=== PATIENT | male | born 1940 | race Caucasian/White ===

== ENCOUNTER 2018-06-25 12:34 | Emergency (ER) | payer MEDICARE, OTHER ==
[~2018-06-25] VITALS: Ht 167.6 cm; Wt 100.0 kg
[2018-06-25] MEDS ORDERED: HYDROcodone/acetaminophen 10/325mg tab PO ONE (13:00)
[2018-06-25] MEDS ORDERED: TRAM50TA2 PO (13:11)
[2018-06-25 14:13] VITALS: BP 145/81
== END 2018-06-25 14:13 | disposition home or self-care (01) ==
LOC: ER 12:34
DX: M54.6 Pain in thoracic spine (principal); M54.5 Low back pain; Z88.2 Allergy status to sulfonamides; Z79.899 Other long term (current) drug therapy
CPT/HCPCS: 72070; 72100; 99283

== ENCOUNTER 2023-05-17 17:46 | Inpatient (IN) | payer BC, MEDICARE ==
[~2023-05-17] VITALS: Ht 170.2 cm; Wt 98.8 kg
[2023-05-17 18:19] LABS: BASOPHILS # (AUTO) 0.1 X10'3 (0-0.2); BASOPHILS % (AUTO) 0.5 % (0-1); EOSINOPHILS # (AUTO) 0.1 X10'3 (0-0.9); HEMATOCRIT 34.8 % (42.0-52.0); HEMOGLOBIN 11.6 g/dl (14.0-17.9); LYMPHOCYTES # (AUTO) 0.6 X10'3 (1.1-4.8); LYMPHOCYTES % (AUTO) 5.4 % (21-51); MEAN CORPUSCULAR HEMOGLOBIN 29.4 PG (27.0-31.0); MEAN CORPUSCULAR HGB CONC 33.2 g/dL (33.0-36.5); MEAN CORPUSCULAR VOLUME 88.6 FL (78-98); MEAN PLATELET VOLUME 7.4 FL (7.4-10.4); MONOCYTES # (AUTO) 0.7 X10'3 (0-0.9); MONOCYTES % (AUTO) 6.1 % (2-12); NEUTROPHILS # (AUTO) 9.7 X10'3 (1.8-7.7); PLATELET COUNT 374 X10'3 (140-440); RED BLOOD COUNT 3.93 X10'6 (4.70-6.10); WHITE BLOOD COUNT 11.2 X10'3 (4.5-11.0)
[2023-05-17 18:24] LABS: ALBUMIN 2.6 G/DL (3.4-5.0); ANION GAP 12 (8-16); BLOOD UREA NITROGEN 42 MG/DL (7-18); BUN/CREATININE RATIO 23.7 (10.0-20.0); CALCIUM 8.2 MG/DL (8.5-10.1); CHLORIDE 105 MMOL/L (99-107); CREATININE 1.77 MG/DL (0.60-1.10); GLUCOSE 151 MG/DL (70-104); POTASSIUM 5.3 MMOL/L (3.5-5.1); SODIUM 135 MMOL/L (135-145); eCRCL 20 ML/MIN; eGFR 37 ML/MIN
[2023-05-17 18:25] LABS: PROTHROMBIN TIME 10.8 SECONDS (9.0-12.0)
[2023-05-17 18:29] LABS: ALANINE AMINOTRANSFERASE 30 U/L (12-78); ALBUMIN 2.6 G/DL (3.4-5.0); ALBUMIN/GLOBULIN RATIO 0.6 (1.1-1.5); ALKALINE PHOSPHATASE 82 IU/L (46-116); ANION GAP 13 (8-16); ASPARTATE AMINO TRANSFERASE 21 U/L (10-37); BILIRUBIN,TOTAL 0.3 MG/DL (0.1-1.0); BLOOD UREA NITROGEN 43 MG/DL (7-18); BUN/CREATININE RATIO 24.4 (10.0-20.0); CALCIUM 8.2 MG/DL (8.5-10.1); CHLORIDE 105 MMOL/L (99-107); CREATININE 1.76 MG/DL (0.60-1.10); GLUCOSE 152 MG/DL (70-104); POTASSIUM 5.3 MMOL/L (3.5-5.1); SODIUM 136 MMOL/L (135-145); TOTAL CARBON DIOXIDE 18.3 MMOL/L (24-32); TOTAL PROTEIN 6.7 G/DL (6.4-8.2); eCRCL 20 ML/MIN; eGFR 37 ML/MIN
[2023-05-17 18:39] LABS: PRO BRAIN NATRIURETIC PEPTIDE 3873 PG/ML (0-450)
[2023-05-17 19:05] LABS: APTT 31 SECONDS (22-32)
[2023-05-17] MEDS: ondansetron 4mg rapidly disintigrating tab PO ONE (20:51)
[2023-05-17] MEDS: normal saline 1000ml 1,000 ML IV ONE (20:57)
[2023-05-17] MEDS ORDERED: temazepam 15mg capsule PO PRN (21:00)
[2023-05-17] MEDS ORDERED: magnesium 4gm in 100ml NS 100 ML IV PRN (21:30)
[2023-05-17] MEDS ORDERED: magnesium hydroxide 30ml (MOM) UD suspension PO PRN (21:30)
[2023-05-17] MEDS ORDERED: ondansetron/PF 4mg/2ml inj IV PRN (21:30)
[2023-05-17] MEDS ORDERED: mag hydrox/Alum hydrox/simeth 30ml oral suspension PO PRN (21:30)
[2023-05-17] MEDS: normal saline 1000ml 1,000 ML IV SCH (21:30)
[2023-05-17] MEDS ORDERED: potassium Cl 40MEQ/1/2NS 520ml 520 ML IV PRN (21:30)
[2023-05-17] MEDS ORDERED: magnesium Cl slow-release 64mg tablet PO PRN (21:30)
[2023-05-17] MEDS ORDERED: potassium Cl 20 mEq SR tablet PO PRN ×2 (21:30)
[2023-05-17] MEDS ORDERED: acetaminophen 325mg tablet PO PRN (21:30)
[2023-05-18 07:14] LABS: BASOPHILS # (AUTO) 0.1 X10'3 (0-0.2); BASOPHILS % (AUTO) 0.7 % (0-1); EOSINOPHILS # (AUTO) 0.1 X10'3 (0-0.9); EOSINOPHILS % (AUTO) 1.2 % (0-6); HEMATOCRIT 33.9 % (42.0-52.0); LYMPHOCYTES # (AUTO) 1.1 X10'3 (1.1-4.8); LYMPHOCYTES % (AUTO) 11.4 % (21-51); MEAN CORPUSCULAR HEMOGLOBIN 28.8 PG (27.0-31.0); MEAN CORPUSCULAR HGB CONC 32.6 g/dL (33.0-36.5); MEAN CORPUSCULAR VOLUME 88.4 FL (78-98); MEAN PLATELET VOLUME 7.5 FL (7.4-10.4); MONOCYTES # (AUTO) 1.3 X10'3 (0-0.9); MONOCYTES % (AUTO) 13.5 % (2-12); NEUTROPHILS # (AUTO) 7.2 X10'3 (1.8-7.7); NEUTROPHILS % (AUTO) 73.2 % (42-75); PLATELET COUNT 362 X10'3 (140-440); RED BLOOD COUNT 3.83 X10'6 (4.70-6.10); RED CELL DISTRIBUTION WIDTH 13.5 % (11.5-14.5); WHITE BLOOD COUNT 9.9 X10'3 (4.5-11.0)
[2023-05-18 07:29] LABS: ALBUMIN 2.3 G/DL (3.4-5.0); ANION GAP 9 (8-16); BLOOD UREA NITROGEN 37 MG/DL (7-18); BUN/CREATININE RATIO 22.8 (10.0-20.0); CALCIUM 7.8 MG/DL (8.5-10.1); CHLORIDE 110 MMOL/L (99-107); CREATININE 1.62 MG/DL (0.60-1.10); GLUCOSE 141 MG/DL (70-104); POTASSIUM 4.8 MMOL/L (3.5-5.1); SODIUM 140 MMOL/L (135-145); TOTAL CARBON DIOXIDE 21.1 MMOL/L (24-32); eCRCL 22 ML/MIN; eGFR 41 ML/MIN
[2023-05-18] MEDS ORDERED: docusate sod 100mg capsule PO SCH (08:00)
[2023-05-18] MEDS: pantoprazole 40mg Tablet.DR PO SCH (09:02)
[2023-05-18] MEDS: metoprolol succinate 25mg (24-HOUR) SR. Tablet PO SCH (09:03)
[2023-05-18] MEDS: heparin, porcine 5000 units/ml vial SQ SCH (09:03)
[2023-05-18 09:19] LABS: BILIRUBIN,URINE NEGATIVE (Neg); CLARITY,URINE CLEAR (Clear); COLOR,URINE STRAW (Yellow); GLUCOSE, URINE NEGATIVE (Neg); KETONES,URINE NEGATIVE (Neg); LEUKOCYTE ESTERASE ,URINE SMALL (Neg); NITRITES, URINE NEGATIVE (Neg); OCCULT BLOOD,URINE TRACE-INTACT (Neg); PROTEIN,URINE 100 mg/dl (Neg); UROBILINOGEN,URINE 0.2 E.U/dL (0.2-1.0)
[2023-05-18 09:24] LABS: UA COLLECTION TYPE NON-SPECIFIED
[2023-05-18 09:25] LABS: SQUAMOUS EPITHELIAL CELL,UR FEW /LPF (FEW); WBC CLUMPS,URINE FEW /HPF (NEGATIVE)
[2023-05-18 09:26] LABS: WBC,URINE 50-100 /HPF (0-4); YEAST MANY /HPF (NEGATIVE)
[2023-05-18 09:27] LABS: BACTERIA,URINE NONE SEEN /HPF (Neg)
[2023-05-18] MEDS: CefTRIAXone/D5W-Rocephin 1gm 50 ML IV SCH (09:30)
[2023-05-18 15:00] VITALS: BP 96/58; PULSE 63; RESP 19; TEMP 98.2; O2SAT 96
[2023-05-18] MEDS ORDERED: SIMV10TA98 PO (17:20)
[2023-05-18] MEDS ORDERED: FINA5TAB11 PO (17:20)
[2023-05-18] MEDS ORDERED: FLO0.4C PO (17:20)
[2023-05-18] MEDS ORDERED: HYDR25TA4 PO (17:20)
[2023-05-18] MEDS ORDERED: PROP20TA6 PO (17:20)
[2023-05-18] MEDS ORDERED: METF-1203 PO (17:20)
[2023-05-18] MEDS ORDERED: AMLO10TA13 PO (17:20)
[2023-05-18] MEDS ORDERED: LANTUS SQ (17:20)
[2023-05-18] MEDS ORDERED: CEPH-585 PO (17:20)
[2023-05-18] MEDS ORDERED: HYDR25TA90 PO (17:23)
[2023-05-18] MEDS ORDERED: PRIM50TA5 (17:23)
[2023-05-18] MEDS ORDERED: CEPH500T PO (17:24)
[2023-05-18 18:00] VITALS: BP 140/62; PULSE 67; RESP 18; TEMP 98.2; O2SAT 97
[2023-05-18] MEDS: hydrALAZINE 25 MG tablet PO SCH (20:34)
[2023-05-18] MEDS: tamsulosin 0.4mg capsule PO SCH (20:34)
[2023-05-18] MEDS ORDERED: glucagon, human recombinant 1mg kit SUBCUT PRN (21:55)
[2023-05-18] MEDS ORDERED: DEXTROSE 15 GM of carb/4 tabs (each vial/BOTTLE has 4 tablets) PO PRN ×2 (21:55)
[2023-05-18] MEDS: MESSAGE TO PHARMACY PO ONE (21:55)
[2023-05-18] MEDS ORDERED: dextrose 50%-water 50ml dispensing syringe IV PRN ×2 (21:55)
[2023-05-18 22:00] VITALS: BP 153/72; PULSE 62; RESP 20; TEMP 98.3; O2SAT 95
[2023-05-18] MEDS: insulin Lispro (HumaLOG) vial - multi-dose SQ SCH (22:56)
[2023-05-18] MEDS: insulin glargine (Lantus) pen - multi-dose SQ SCH (23:00)
[2023-05-19 02:00] VITALS: BP 157/77; PULSE 67; RESP 16; TEMP 97.5; O2SAT 95
[2023-05-19 06:00] VITALS: BP 146/62; PULSE 70; RESP 12; TEMP 98.2; O2SAT 95
[2023-05-19 06:47] LABS: HEMOGLOBIN A1C 7.6 % (4.5-6.2)
[2023-05-19 06:49] LABS: BASOPHILS # (AUTO) 0.1 X10'3 (0-0.2); BASOPHILS % (AUTO) 1.1 % (0-1); EOSINOPHILS # (AUTO) 0.1 X10'3 (0-0.9); EOSINOPHILS % (AUTO) 1.4 % (0-6); HEMATOCRIT 31.9 % (42.0-52.0); HEMOGLOBIN 10.8 g/dl (14.0-17.9); LYMPHOCYTES # (AUTO) 1.2 X10'3 (1.1-4.8); LYMPHOCYTES % (AUTO) 16.2 % (21-51); MEAN CORPUSCULAR HEMOGLOBIN 29.7 PG (27.0-31.0); MEAN CORPUSCULAR HGB CONC 33.8 g/dL (33.0-36.5); MEAN PLATELET VOLUME 7.7 FL (7.4-10.4); MONOCYTES # (AUTO) 0.9 X10'3 (0-0.9); MONOCYTES % (AUTO) 12.2 % (2-12); NEUTROPHILS # (AUTO) 4.9 X10'3 (1.8-7.7); NEUTROPHILS % (AUTO) 69.1 % (42-75); PLATELET COUNT 360 X10'3 (140-440); RED BLOOD COUNT 3.63 X10'6 (4.70-6.10); RED CELL DISTRIBUTION WIDTH 13.8 % (11.5-14.5); WHITE BLOOD COUNT 7.1 X10'3 (4.5-11.0)
[2023-05-19 07:05] LABS: ALBUMIN 2.2 G/DL (3.4-5.0); ANION GAP 11 (8-16); BLOOD UREA NITROGEN 29 MG/DL (7-18); CALCIUM 8.1 MG/DL (8.5-10.1); CHLORIDE 111 MMOL/L (99-107); CREATININE 1.38 MG/DL (0.60-1.10); GLUCOSE 152 MG/DL (70-104); POTASSIUM 4.5 MMOL/L (3.5-5.1); SODIUM 143 MMOL/L (135-145); TOTAL CARBON DIOXIDE 20.9 MMOL/L (24-32); eCRCL 26 ML/MIN; eGFR 49 ML/MIN
[2023-05-19] MEDS: amLODIPine 5mg tablet PO SCH (08:31)
[2023-05-19] MEDS: finasteride 5mg tablet PO SCH (08:33)
[2023-05-19 11:00] VITALS: BP 136/66; PULSE 71; RESP 19; TEMP 97.7; O2SAT 94
[2023-05-19] MEDS: fluconazole 100mg tablet PO SCH (14:59)
[2023-05-19 15:00] VITALS: BP 120/44; PULSE 80; RESP 18; TEMP 98.2; O2SAT 96
[2023-05-19 18:00] VITALS: BP 143/64; PULSE 72; RESP 19; TEMP 98; O2SAT 99
[2023-05-19] MEDS ORDERED: non-formulary drug (Propranolol Hcl 1 TAB) PO SCH (19:00)
[2023-05-19 22:00] VITALS: BP 136/79; PULSE 50; RESP 16; TEMP 97.9; O2SAT 96
[2023-05-20] VITALS (7 sets, daily range): BP systolic 99–154; BP diastolic 56–75; PULSE 58–80; RESP 15–22; TEMP 97.2–99.2; O2SAT 92–100
[2023-05-20 07:47] LABS: BASOPHILS # (AUTO) 0.1 X10'3 (0-0.2); BASOPHILS % (AUTO) 0.9 % (0-1); EOSINOPHILS # (AUTO) 0.2 X10'3 (0-0.9); EOSINOPHILS % (AUTO) 2.4 % (0-6); HEMATOCRIT 33.9 % (42.0-52.0); HEMOGLOBIN 11.3 g/dl (14.0-17.9); LYMPHOCYTES # (AUTO) 1.4 X10'3 (1.1-4.8); LYMPHOCYTES % (AUTO) 19.1 % (21-51); MEAN CORPUSCULAR HEMOGLOBIN 29.5 PG (27.0-31.0); MEAN CORPUSCULAR HGB CONC 33.3 g/dL (33.0-36.5); MEAN CORPUSCULAR VOLUME 88.5 FL (78-98); MEAN PLATELET VOLUME 7.7 FL (7.4-10.4); MONOCYTES # (AUTO) 0.9 X10'3 (0-0.9); MONOCYTES % (AUTO) 12.5 % (2-12); NEUTROPHILS # (AUTO) 4.9 X10'3 (1.8-7.7); NEUTROPHILS % (AUTO) 65.1 % (42-75); PLATELET COUNT 357 X10'3 (140-440); RED BLOOD COUNT 3.83 X10'6 (4.70-6.10); RED CELL DISTRIBUTION WIDTH 13.9 % (11.5-14.5); WHITE BLOOD COUNT 7.5 X10'3 (4.5-11.0)
[2023-05-20 08:32] LABS: ALBUMIN 2.3 G/DL (3.4-5.0); ANION GAP 10 (8-16); BLOOD UREA NITROGEN 22 MG/DL (7-18); BUN/CREATININE RATIO 16.8 (10.0-20.0); CHLORIDE 110 MMOL/L (99-107); CREATININE 1.31 MG/DL (0.60-1.10); FREE T4 (FREE THYROXINE) 1.38 NG/DL (0.73-1.40); GLUCOSE 139 MG/DL (70-104); POTASSIUM 4.3 MMOL/L (3.5-5.1); SODIUM 141 MMOL/L (135-145); THYROID STIMULATING HORMONE 0.58 ulU/ml (0.34-4.50); TOTAL CARBON DIOXIDE 21.2 MMOL/L (24-32); eCRCL 40 ML/MIN; eGFR 52 ML/MIN
[2023-05-20] MEDS: cetirizine 10mg tablet PO SCH (15:34)
[2023-05-21] VITALS (7 sets, daily range): BP systolic 90–150; BP diastolic 62–89; PULSE 49–104; RESP 14–23; TEMP 97–99.2; O2SAT 94–98
[2023-05-21 08:14] LABS: BASOPHILS # (AUTO) 0.1 X10'3 (0-0.2); BASOPHILS % (AUTO) 1.2 % (0-1); EOSINOPHILS # (AUTO) 0.1 X10'3 (0-0.9); EOSINOPHILS % (AUTO) 1.6 % (0-6); HEMOGLOBIN 10.9 g/dl (14.0-17.9); LYMPHOCYTES # (AUTO) 1.3 X10'3 (1.1-4.8); LYMPHOCYTES % (AUTO) 18.4 % (21-51); MEAN CORPUSCULAR HEMOGLOBIN 29.4 PG (27.0-31.0); MEAN CORPUSCULAR VOLUME 89.1 FL (78-98); MEAN PLATELET VOLUME 7.8 FL (7.4-10.4); MONOCYTES # (AUTO) 0.8 X10'3 (0-0.9); MONOCYTES % (AUTO) 10.9 % (2-12); NEUTROPHILS # (AUTO) 4.8 X10'3 (1.8-7.7); NEUTROPHILS % (AUTO) 67.9 % (42-75); PLATELET COUNT 349 X10'3 (140-440); RED CELL DISTRIBUTION WIDTH 13.8 % (11.5-14.5); WHITE BLOOD COUNT 7.1 X10'3 (4.5-11.0)
[2023-05-21 08:25] LABS: ALBUMIN 2.3 G/DL (3.4-5.0); ANION GAP 9 (8-16); BLOOD UREA NITROGEN 21 MG/DL (7-18); BUN/CREATININE RATIO 17.6 (10.0-20.0); CHLORIDE 112 MMOL/L (99-107); CREATININE 1.19 MG/DL (0.60-1.10); GLUCOSE 123 MG/DL (70-104); POTASSIUM 4.6 MMOL/L (3.5-5.1); SODIUM 143 MMOL/L (135-145); TOTAL CARBON DIOXIDE 22.3 MMOL/L (24-32); eCRCL 44 ML/MIN; eGFR 58 ML/MIN
[2023-05-21] MEDS: loratadine 10mg tablet PO SCH (08:59)
[2023-05-21] MEDS: albuterol 2.5 MG/3 ML nebule NEB SCH (15:00)
[2023-05-22] VITALS (8 sets, daily range): BP systolic 139–159; BP diastolic 48–73; PULSE 62–96; RESP 15–22; TEMP 97.1–98.3; O2SAT 95–98
[2023-05-22 06:22] LABS: BASOPHILS # (AUTO) 0.1 X10'3 (0-0.2); BASOPHILS % (AUTO) 1.2 % (0-1); EOSINOPHILS # (AUTO) 0.2 X10'3 (0-0.9); EOSINOPHILS % (AUTO) 2.5 % (0-6); HEMATOCRIT 31.8 % (42.0-52.0); HEMOGLOBIN 10.7 g/dl (14.0-17.9); LYMPHOCYTES # (AUTO) 1.1 X10'3 (1.1-4.8); LYMPHOCYTES % (AUTO) 14.8 % (21-51); MEAN CORPUSCULAR HEMOGLOBIN 29.7 PG (27.0-31.0); MEAN CORPUSCULAR HGB CONC 33.5 g/dL (33.0-36.5); MEAN CORPUSCULAR VOLUME 88.7 FL (78-98); MEAN PLATELET VOLUME 7.9 FL (7.4-10.4); MONOCYTES # (AUTO) 0.8 X10'3 (0-0.9); MONOCYTES % (AUTO) 11.1 % (2-12); NEUTROPHILS # (AUTO) 5.4 X10'3 (1.8-7.7); NEUTROPHILS % (AUTO) 70.4 % (42-75); PLATELET COUNT 348 X10'3 (140-440); RED BLOOD COUNT 3.58 X10'6 (4.70-6.10); RED CELL DISTRIBUTION WIDTH 13.7 % (11.5-14.5); WHITE BLOOD COUNT 7.6 X10'3 (4.5-11.0)
[2023-05-22 06:23] LABS: ALBUMIN 2.1 G/DL (3.4-5.0); ANION GAP 10 (8-16); BLOOD UREA NITROGEN 18 MG/DL (7-18); BUN/CREATININE RATIO 15.8 (10.0-20.0); CALCIUM 8.2 MG/DL (8.5-10.1); CHLORIDE 113 MMOL/L (99-107); CREATININE 1.14 MG/DL (0.60-1.10); GLUCOSE 110 MG/DL (70-104); POTASSIUM 4.5 MMOL/L (3.5-5.1); SODIUM 144 MMOL/L (135-145); TOTAL CARBON DIOXIDE 21.2 MMOL/L (24-32); eCRCL 46 ML/MIN; eGFR 61 ML/MIN
[2023-05-22] MEDS: losartan 50mg tablet PO SCH (08:25)
[2023-05-23 07:27] LABS: HBSAG SCREEN Negative (Negative); HEP B CORE AB, IGM Negative (Negative); HEP B CORE AB, TOT Negative (Negative)
[2023-06-01] MEDS ORDERED: FURO40TA4 PO (17:22)
[2023-06-01] MEDS ORDERED: POTA-205 PO (17:22)
== END 2023-05-22 15:35 | DRG 698 ==
LOC: ER 17:47 → ED HOLD 21:38 → EDBEDREQ 05-18 10:09 → PCU 3S 05-18 11:49
PROVIDERS: ADMIT Internal Medicine; ATTEND Internal Medicine
DX: T83.511A Infection and inflammatory reaction due to indwelling urethral catheter, initial encounter (principal); N17.0 Acute kidney failure with tubular necrosis; B37.49 Other urogenital candidiasis; N13.8 Other obstructive and reflux uropathy; J30.9 Allergic rhinitis, unspecified; I12.9 Hypertensive chronic kidney disease with stage 1 through stage 4 chronic kidney disease, or unspecified chronic kidney disease; N18.9 Chronic kidney disease, unspecified; E11.22 Type 2 diabetes mellitus with diabetic chronic kidney disease; E87.5 Hyperkalemia; Z20.822 Contact with and (suspected) exposure to COVID-19; R26.81 Unsteadiness on feet; E86.0 Dehydration; R05.9 Cough, unspecified; D64.9 Anemia, unspecified; I49.9 Cardiac arrhythmia, unspecified; I49.3 Ventricular premature depolarization; Z88.2 Allergy status to sulfonamides; Z79.899 Other long term (current) drug therapy; Z80.42 Family history of malignant neoplasm of prostate
CPT/HCPCS: 36415; 71045; 80048; 80053; 81001; 82948; 83036; 83880; 84145; 84439; 84443; 84484; 85025; 85610; 85730; 86704; 86705; 87077; 87081; 87088; 87340; 87502; 87503; 87811; 93005; 93306; 94640; 94760; 97116; 97161; 97530; 97535; 99285; A4333; A5200; G0378; J0696; J1644; J1815; J7030

== ENCOUNTER → 2023-06-01 | Emergency (ER) | payer BC ==
[~2023-06-01] VITALS: Ht 170.2 cm; Wt 100.0 kg
[~2023-06-01] MED LIST: AMLO10TA13 PO; CEPH-585 PO; CEPH500T PO; FINA5TAB11 PO; FLO0.4C PO; FURO40TA4 PO; HYDR25TA4 PO; HYDR25TA90 PO; LANTUS SQ; METF-1203 PO; POTA-205 PO; PRIM50TA5; PROP20TA6 PO; SIMV10TA98 PO
[2023-06-01 14:00] VITALS: BP 152/50; PULSE 67; RESP 16; TEMP 98.4; O2SAT 94
[2023-06-01 14:42] LABS: BASOPHILS # (AUTO) 0.1 X10'3 (0-0.2); BASOPHILS % (AUTO) 0.9 % (0-1); EOSINOPHILS # (AUTO) 0.2 X10'3 (0-0.9); EOSINOPHILS % (AUTO) 2.5 % (0-6); HEMATOCRIT 31.1 % (42.0-52.0); HEMOGLOBIN 10.2 g/dl (14.0-17.9); LYMPHOCYTES # (AUTO) 0.6 X10'3 (1.1-4.8); LYMPHOCYTES % (AUTO) 9.3 % (21-51); MEAN CORPUSCULAR HEMOGLOBIN 28.8 PG (27.0-31.0); MEAN CORPUSCULAR HGB CONC 32.9 g/dL (33.0-36.5); MEAN CORPUSCULAR VOLUME 87.3 FL (78-98); MEAN PLATELET VOLUME 8.2 FL (7.4-10.4); MONOCYTES # (AUTO) 0.8 X10'3 (0-0.9); NEUTROPHILS # (AUTO) 4.7 X10'3 (1.8-7.7); NEUTROPHILS % (AUTO) 74.3 % (42-75); PLATELET COUNT 280 X10'3 (140-440); RED BLOOD COUNT 3.56 X10'6 (4.70-6.10); RED CELL DISTRIBUTION WIDTH 13.6 % (11.5-14.5); WHITE BLOOD COUNT 6.4 X10'3 (4.5-11.0)
[2023-06-01 15:15] LABS: ANION GAP 12 (8-16); BILIRUBIN,DIRECT 0.1 MG/DL (0-0.3); BILIRUBIN,TOTAL 0.2 MG/DL (0.1-1.0); CHLORIDE 100 MMOL/L (99-107); MAGNESIUM 1.8 MG/DL (1.5-2.4); POTASSIUM 4.8 MMOL/L (3.5-5.1); PRO BRAIN NATRIURETIC PEPTIDE 4077 PG/ML (0-450); SODIUM 132 MMOL/L (135-145); TOTAL CARBON DIOXIDE 20.4 MMOL/L (24-32); TOTAL PROTEIN 6.5 G/DL (6.4-8.2)
[2023-06-01 15:16] LABS: ALANINE AMINOTRANSFERASE 33 U/L (12-78); ALBUMIN 2.5 G/DL (3.4-5.0); ALBUMIN/GLOBULIN RATIO 0.6 (1.1-1.5); ALKALINE PHOSPHATASE 96 IU/L (46-116); ASPARTATE AMINO TRANSFERASE 21 U/L (10-37); BLOOD UREA NITROGEN 50 MG/DL (7-18); BUN/CREATININE RATIO 28.2 (10.0-20.0); CALCIUM 8.1 MG/DL (8.5-10.1); CREATININE 1.77 MG/DL (0.60-1.10); GLUCOSE 152 MG/DL (70-104); eCRCL 30 ML/MIN; eGFR 37 ML/MIN
== END | disposition home or self-care (01) ==
LOC: ER 13:58
DX: R60.9 Edema, unspecified (principal); R53.1 Weakness; N18.9 Chronic kidney disease, unspecified; Z88.2 Allergy status to sulfonamides
CPT/HCPCS: 36415; 71045; 80048; 80076; 83735; 83880; 84484; 85025; 93005; 99285

== ENCOUNTER 2023-09-29 13:50 | Emergency (ER) | payer BC ==
[~2023-09-29] VITALS: Ht 167.6 cm; Wt 95.5 kg
[~2023-09-29 13:50] MED LIST changes: -FURO40TA4 PO
[2023-09-29 14:56] LABS: BASOPHILS # (AUTO) 0.1 X10'3 (0-0.2); BASOPHILS % (AUTO) 1.1 % (0-1); EOSINOPHILS # (AUTO) 0.2 X10'3 (0-0.9); EOSINOPHILS % (AUTO) 3.1 % (0-6); HEMOGLOBIN 11.5 g/dl (14.0-17.9); LYMPHOCYTES # (AUTO) 1.3 X10'3 (1.1-4.8); LYMPHOCYTES % (AUTO) 17.7 % (21-51); MEAN CORPUSCULAR HEMOGLOBIN 28.8 PG (27.0-31.0); MEAN CORPUSCULAR HGB CONC 32.9 g/dL (33.0-36.5); MEAN CORPUSCULAR VOLUME 87.6 FL (78-98); MEAN PLATELET VOLUME 7.6 FL (7.4-10.4); MONOCYTES # (AUTO) 0.6 X10'3 (0-0.9); MONOCYTES % (AUTO) 8.6 % (2-12); NEUTROPHILS # (AUTO) 5.2 X10'3 (1.8-7.7); NEUTROPHILS % (AUTO) 69.5 % (42-75); PLATELET COUNT 315 X10'3 (140-440); RED BLOOD COUNT 3.99 X10'6 (4.70-6.10); RED CELL DISTRIBUTION WIDTH 16.6 % (11.5-14.5); WHITE BLOOD COUNT 7.5 X10'3 (4.5-11.0)
[2023-09-29 15:26] LABS: ALANINE AMINOTRANSFERASE 24 U/L (12-78); ALBUMIN/GLOBULIN RATIO 0.8 (1.1-1.5); ALKALINE PHOSPHATASE 77 IU/L (46-116); ANION GAP 10 (8-16); ASPARTATE AMINO TRANSFERASE 11 U/L (10-37); BILIRUBIN,TOTAL 0.2 MG/DL (0.1-1.0); BLOOD UREA NITROGEN 48 MG/DL (7-18); BUN/CREATININE RATIO 28.7 (10.0-20.0); CALCIUM 8.6 MG/DL (8.5-10.1); CHLORIDE 107 MMOL/L (99-107); CREATININE 1.67 MG/DL (0.60-1.10); GLUCOSE 138 MG/DL (70-104); SODIUM 136 MMOL/L (135-145); TOTAL CARBON DIOXIDE 19.1 MMOL/L (24-32); TOTAL PROTEIN 6.8 G/DL (6.4-8.2); eCRCL 30 ML/MIN; eGFR 39 ML/MIN
[2023-09-29 15:31] LABS: POTASSIUM 6.4 MMOL/L (3.5-5.1)
[2023-09-29] MEDS ORDERED: calcium gluconate inj. 1 GM in normal saline 100ml IV soln 40 ML IV ONE (15:40)
[2023-09-29 16:16] LABS: PRO BRAIN NATRIURETIC PEPTIDE 2470 PG/ML (0-450)
[2023-09-29] MEDS: CALCIUM GLUC IV ONE (16:39)
[2023-09-29] MEDS: NACL ISO IV ONE (16:39)
[2023-09-29 17:31] LABS: ALBUMIN 2.9 G/DL (3.4-5.0); ANION GAP 10 (8-16); BLOOD UREA NITROGEN 47 MG/DL (7-18); BUN/CREATININE RATIO 29.4 (10.0-20.0); CALCIUM 8.7 MG/DL (8.5-10.1); CHLORIDE 107 MMOL/L (99-107); GLUCOSE 106 MG/DL (70-104); SODIUM 137 MMOL/L (135-145); TOTAL CARBON DIOXIDE 20.5 MMOL/L (24-32); eCRCL 32 ML/MIN; eGFR 41 ML/MIN
[2023-09-29 17:36] LABS: POTASSIUM 6.5 MMOL/L (3.5-5.1)
[2023-09-29] MEDS ORDERED: CALCIUM GLUC 1gm/50ml NACL,iso 50 ML IV PRN (18:00)
[2023-09-29] MEDS: dextrose 50%-water 50ml dispensing syringe IV ONE (18:12)
[2023-09-29] MEDS: insulin regular, human 10 units/0.1 ml syringe IV ONE (18:14)
[2023-09-29 19:43] LABS: ALBUMIN 2.9 G/DL (3.4-5.0); ANION GAP 9 (8-16); BLOOD UREA NITROGEN 48 MG/DL (7-18); BUN/CREATININE RATIO 30.6 (10.0-20.0); CALCIUM 8.9 MG/DL (8.5-10.1); CHLORIDE 109 MMOL/L (99-107); CREATININE 1.57 MG/DL (0.60-1.10); GLUCOSE 81 MG/DL (70-104); POTASSIUM 5.1 MMOL/L (3.5-5.1); SODIUM 139 MMOL/L (135-145); eCRCL 32 ML/MIN; eGFR 42 ML/MIN
[2023-09-29 20:20] VITALS: BP 142/83; PULSE 78; RESP 16; TEMP 98.3; O2SAT 98
== END 2023-09-29 20:23 | disposition home or self-care (01) ==
LOC: ER 13:50
DX: E87.5 Hyperkalemia (principal); Z88.2 Allergy status to sulfonamides; Z79.899 Other long term (current) drug therapy; Z79.2 Long term (current) use of antibiotics
CPT/HCPCS: 36415; 71045; 80048; 80053; 82948; 83880; 85025; 93005; 96365; 96375; 99285; J0610; J1815; J3490